=== PATIENT | male | born 1965 | race Caucasian/White ===

== ENCOUNTER → 2016-05-10 | Outpatient (REF) | payer BC ==
[2016-05-10 11:12] LABS: INR 0.9
[2016-05-10 11:28] LABS: ALBUMIN 4.3 GM/DL (3.2-5.2); ALBUMIN/GLOBULIN RATIO 1.39 (1.00-1.93); ALKALINE PHOSPHATASE 77 U/L (45-117); ALT/SGPT 22 U/L (12-78); ANION GAP 11 MEQ/L (8-16); AST/SGOT 21 U/L (15-37); BILIRUBIN,TOTAL 1.4 MG/DL (0.2-1.0); BLOOD UREA NITROGEN 15 MG/DL (7-18); CARBON DIOXIDE LEVEL 28 MEQ/L (21-32); CHLORIDE LEVEL 102 MEQ/L (98-107); CREATININE FOR GFR 0.99 MG/DL (0.70-1.30); GLOMERULAR FILTRATION RATE > 60.0 (>56); GLUCOSE, FASTING 140 MG/DL (70-105); POTASSIUM SERUM 4.1 MEQ/L (3.5-5.1); SODIUM LEVEL 141 MEQ/L (136-145); TOTAL PROTEIN 7.4 GM/DL (6.4-8.2)
== END ==
LOC: M SFHCPLAZ 07:55
PROVIDERS: ATTEND Family Medicine
DX: K76.0 Fatty (change of) liver, not elsewhere classified (principal); E11.9 Type 2 diabetes mellitus without complications

== ENCOUNTER 2016-06-16 01:48 | Emergency (ER) | payer BC ==
[~2016-06-16] VITALS: Ht 172.7 cm; Wt 71.2 kg
[2016-06-16 01:57] VITALS: BP 163/95
[2016-06-16] MEDS ORDERED: MULT1CHW39 PO (02:03)
[2016-06-16] MEDS ORDERED: REST0.05 OP (02:04)
[2016-06-16] MEDS ORDERED: JARD1TAB3 PO (02:04)
[2016-06-16] MEDS ORDERED: PERCOCET 5MG/325MG TAB PO ONE (02:45)
[2016-06-16] MEDS ORDERED: CYCLOBENZAPRINE 5MG TABLET PO ONE (02:45)
[2016-06-16] MEDS ORDERED: KETOROLAC 30 MG/ML VIAL (J1885) IM ONE (02:45)
[2016-06-16] MEDS ORDERED: IBUP600T26 PO (03:23)
[2016-06-16] MEDS ORDERED: CYCL5TA PO (03:24)
[2016-06-16] MEDS ORDERED: PERC5TAB6 PO (03:25)
== END 2016-06-16 03:35 | disposition home or self-care (01) ==
LOC: M ED 03:16
DX: M54.9 Dorsalgia, unspecified (principal); I10 Essential (primary) hypertension; E11.9 Type 2 diabetes mellitus without complications
CPT/HCPCS: 81001; 96372; 99281; J1885

== ENCOUNTER → 2016-11-04 | Outpatient (REF) | payer BC ==
[~2016-11-04] MED LIST: CYCL5TAB PO; IBUP-1022 PO; JARD1TAB3 PO; MULT1CHW39 PO; PERC5TAB12 PO; REST0.05 OP
[2016-11-04 12:12] LABS: CHOLESTEROL LEVEL 125 MG/DL (<200); TRIGLYCERIDES LEVEL 292 MG/DL (<150)
[2016-11-04 18:46] LABS: CALCIUM OXALATE CRYSTALS SMALL
== END ==
LOC: M SFHCPLAZ 07:42
PROVIDERS: ATTEND Family Medicine
DX: E78.2 Mixed hyperlipidemia (principal); E11.9 Type 2 diabetes mellitus without complications; Z12.5 Encounter for screening for malignant neoplasm of prostate
CPT/HCPCS: 36415; 80061; 81001; 82043; 82550; 83036; 86140; G0103

== ENCOUNTER → 2017-05-11 | Outpatient (REF) | payer BC ==
[2017-05-11 14:57] LABS: BASO % 0.6 % (0.0-1.0); EOS # 0.1 10^3/uL (0.0-0.50); EOS % 1.6 % (0.0-3.0); HEMATOCRIT 44.6 % (42.0-52.0); HEMOGLOBIN 15.3 g/dl (14.0-18.0); IMMATURE GRANULOCYTE % 0.2 % (0-0); LYMPH # 2.2 10^3/uL (1.5-4.5); LYMPH % 35.5 % (24.0-44.0); MEAN CORPUSCULAR HEMOGLOBIN 31.6 pg (27.0-33.0); MEAN CORPUSCULAR HGB CONC 34.3 g/dl (32.0-36.5); MEAN CORPUSCULAR VOLUME 92.1 fl (80.0-96.0); MONO # 0.6 10^3/uL (0.0-0.8); MONO % 9.5 % (0.0-5.0); NEUTROPHILS # 3.3 10^3/uL (1.8-7.7); NEUTROPHILS % 52.6 % (36.0-66.0); PLATELET COUNT, AUTOMATED 174 10^3/uL (150-450); RED BLOOD COUNT 4.84 10^6/uL (4.30-6.10); RED CELL DISTRIBUTION WIDTH 12.7 % (11.5-14.5); WHITE BLOOD COUNT 6.2 10^3/uL (4.0-10.0)
[2017-05-11 15:15] LABS: TOTAL 25(OH) VITAMIN D 16.3 NG/ML (30.0-100.0)
[2017-05-11 15:39] LABS: ESTIMATED AVERAGE GLUCOSE 140 MG/DL (60-110); HEMOGLOBIN A1c 6.5 %
[2017-05-11 15:56] LABS: ALBUMIN 4.3 GM/DL (3.2-5.2); ALBUMIN/GLOBULIN RATIO 1.54 (1.00-1.93); ALKALINE PHOSPHATASE 69 U/L (45-117); ALT/SGPT 20 U/L (12-78); ANION GAP 9 MEQ/L (8-16); AST/SGOT 19 U/L (7-37); BILIRUBIN,TOTAL 0.7 MG/DL (0.2-1.0); BLOOD UREA NITROGEN 16 MG/DL (7-18); CALCIUM LEVEL 8.8 MG/DL (8.5-10.1); CARBON DIOXIDE LEVEL 25 MEQ/L (21-32); CHLORIDE LEVEL 105 MEQ/L (98-107); CREATININE FOR GFR 0.94 MG/DL (0.70-1.30); GLOMERULAR FILTRATION RATE > 60.0 (>56); GLUCOSE, FASTING 177 MG/DL (70-100); MAGNESIUM LEVEL 2.1 MG/DL (1.8-2.4); POTASSIUM SERUM 4.1 MEQ/L (3.5-5.1); SODIUM LEVEL 139 MEQ/L (136-145); TOTAL PROTEIN 7.1 GM/DL (6.4-8.2)
[2017-05-13 14:15] LABS: C-PEPTIDE 3.5 ng/mL (1.1-4.4)
== END ==
LOC: M SFHCPLAZ 08:40
DX: E55.9 Vitamin D deficiency, unspecified (principal); N18.2 Chronic kidney disease, stage 2 (mild); E11.9 Type 2 diabetes mellitus without complications; I12.9 Hypertensive chronic kidney disease with stage 1 through stage 4 chronic kidney disease, or unspecified chronic kidney disease
CPT/HCPCS: 83735

== ENCOUNTER → 2017-09-28 | Outpatient (REF) | payer BC ==
[2017-09-28 16:00] LABS: ALBUMIN 4.2 GM/DL (3.2-5.2); ALBUMIN/GLOBULIN RATIO 1.45 (1.00-1.93); ALKALINE PHOSPHATASE 69 U/L (45-117); ALT/SGPT 24 U/L (12-78); ANION GAP 7 MEQ/L (8-16); AST/SGOT 25 U/L (7-37); BILIRUBIN,TOTAL 1.7 MG/DL (0.2-1.0); BLOOD UREA NITROGEN 12 MG/DL (7-18); CALCIUM LEVEL 8.5 MG/DL (8.5-10.1); CARBON DIOXIDE LEVEL 28 MEQ/L (21-32); CHLORIDE LEVEL 104 MEQ/L (98-107); GLOMERULAR FILTRATION RATE > 60.0 (>56); GLUCOSE, FASTING 147 MG/DL (70-100); POTASSIUM SERUM 4.1 MEQ/L (3.5-5.1); SODIUM LEVEL 139 MEQ/L (136-145); TOTAL PROTEIN 7.1 GM/DL (6.4-8.2)
== END ==
LOC: M SFHCPLAZ 08:48
DX: I10 Essential (primary) hypertension (principal); E78.2 Mixed hyperlipidemia; E11.9 Type 2 diabetes mellitus without complications; Z12.5 Encounter for screening for malignant neoplasm of prostate
CPT/HCPCS: 80053

== ENCOUNTER → 2017-10-04 | Outpatient (CLI) | payer BC ==
[~2017-10-04] MED LIST changes: -CYCL5TAB PO; -IBUP-1022 PO; +ISOVUE-370 76% 100ML VIAL (Q9967) As Ordered; -JARD1TAB3 PO; -MULT1CHW39 PO; -PERC5TAB12 PO; -REST0.05 OP
== END ==
LOC: M RAD 13:24
DX: R22.1 Localized swelling, mass and lump, neck (principal); F17.210 Nicotine dependence, cigarettes, uncomplicated
CPT/HCPCS: Q9967

== ENCOUNTER → 2017-11-07 | Outpatient (REF) | payer BC ==
[2017-11-07 13:04] LABS: CHOLESTEROL LEVEL 106 MG/DL (<200); CHOLESTEROL RISK RATIO 2.409 (<5); FREE T4 1.05 NG/DL (0.76-1.46); HDL CHOLESTEROL 44 MG/DL (>40); LDL CHOLESTEROL 22.8 MG/DL (<100); NON-HDL-C 62 MG/DL; PSA SCREENING 0.95 NG/ML (< 4.0); TRIGLYCERIDES LEVEL 196 MG/DL (<150)
[2017-11-07 14:55] LABS: ESTIMATED AVERAGE GLUCOSE 137 MG/DL (60-110); HEMOGLOBIN A1c 6.4 %
[2017-11-08 14:17] LABS: INSULIN LEVEL 8.5 uIU/mL (2.6-24.9)
== END ==
LOC: M SFHCPLAZ 08:13
DX: E78.2 Mixed hyperlipidemia (principal); E11.9 Type 2 diabetes mellitus without complications; Z12.5 Encounter for screening for malignant neoplasm of prostate
CPT/HCPCS: 83525

== ENCOUNTER 2017-12-19 13:59 | Outpatient (RCR) | payer BC | END 2018-01-07 | LOC: M ONCR 13:59 | DX: C77.0 Secondary and unspecified malignant neoplasm of lymph nodes of head, face and neck (principal); C01 Malignant neoplasm of base of tongue | CPT/HCPCS: 77300 ==

== ENCOUNTER 2018-02-05 08:12 | Outpatient (RCR) | payer BC ==
--- NOTE | 2018-01-09 10:23 | RADONC ---
RADIATION ONCOLOGY PROGRESS NOTE DATE: 01/08/2018 CHART NUMBER: [id number] PROGRESS NOTE: Mr. Ruelas is presently at a dose of 600 cGy to his base of tongue and is tolerating treatments quite well at this point with no complaints related to his radiation therapy. He does have weakness and a metallic taste sensation since chemotherapy. REVIEW OF SYSTEMS: The patient's review of systems is positive for a strange taste in his mouth and weakness but is otherwise noncontributory. Denies nausea, vomiting, fevers, chills, night sweats, diplopia, headaches, anxiety or depression, anorexia, weight loss, visual disturbances, chest pain, urinary or bowel difficulties, bone pain, or neurological problems. PHYSICAL EXAMINATION: The patient's skin is in good condition with no evidence of radiation change present. There is no moist or dry desquamation. His oral cavity shows no evidence of mucositis. The remainder of his physical exam remains unchanged. Mr. Ruelas is tolerating treatments quite well and radiation will continue as scheduled.
--- NOTE | 2018-01-17 08:23 | RADONC ---
RADIATION ONCOLOGY PROGRESS NOTE DATE: 01/15/2018 CHART #: [id number] Mr. Ruelas is presently at a dose of 1600 cGy to his base of tongue and is tolerating treatments quite well at this point with no complaints related to his radiation therapy. He is having no significant difficulty swallowing or other problems. REVIEW OF SYSTEMS: The patient's review of systems is noncontributory. Denies nausea, vomiting, fevers, chills, night sweats, diplopia, headaches, anxiety or depression, anorexia, weight loss, visual disturbances, chest pain, urinary or bowel difficulties, bone pain, or neurological problems. PHYSICAL EXAMINATION: The patient's skin is in good condition with no evidence of radiation change present. His oral cavity examination shows minimal mucositis. The remainder of his physical exam remains unchanged. Mr. Ruelas is tolerating treatments quite well and radiation will continue as scheduled.
--- NOTE | 2018-01-23 10:45 | RADONC ---
RADIATION ONCOLOGY PROGRESS NOTE: DATE: 01/22/2018 CHART NUMBER: [id number] PROGRESS NOTE: Mr. Ruelas is presently at a dose of 2600 cGy to his base of tongue and reports that he is having significant oral cavity pain and discomfort. He reports that it is hard to swallow. In addition, nothing tastes right and he has no appetite since he initiated chemotherapy. He reports that this is always worse the third day following chemo. REVIEW OF SYSTEMS: The patient's review of systems is positive for his esophagitis but is otherwise noncontributory. Denies nausea, vomiting, fevers, chills, night sweats, diplopia, headaches, anxiety or depression, anorexia, weight loss, visual disturbances, chest pain, urinary or bowel difficulties, bone pain, or neurological problems. PHYSICAL EXAMINATION: The patient's skin is in good condition with no evidence of radiation change present. There is no moist or dry desquamation. His oral cavity shows some mild mucositis. His weight, however today is down 4 pounds in the past week. The remainder of his physical exam remains unchanged. ASSESSMENT: The patient is clinically doing well with treatment. However, he is now beginning to develop some of the acute difficulties that are expected. I had a lengthy discussion with this patient once again and have highly recommended that he undertake a feeding placement of a PEG tube. He reports that he has spoken with the physicians in [place] and that they have told him that they could get him in within 3 days for placement of a PEG tube. Since he did not go to see our surgeon as advised earlier, I recommend that he take them up on this offer in [place] since they can get him in faster than we can. In addition, I have sent in a prescription for viscous Xylocaine to be taken in order to alleviate some of his discomfort. I have also offered to give him some pain medication in the meantime while we await the feeding tube. At this time, the patient reports that he is urinating frequently without difficulty. His urine is light and clear in color. He does not feel dehydrated. Radiation will continue as scheduled.
--- NOTE | 2018-01-30 10:17 | RADONC ---
RADIATION ONCOLOGY PROGRESS NOTE DATE: 01/29/2018 CHART #: [id number] Mr. Ruelas is presently at a dose of 3600 cGy to his base of tongue and is tolerating treatments with discomfort upon swallowing. He still has not undergone his PEG feeding tube. I have had multiple discussions with him including a lengthy one last week. Apparently, the patient is continuing to refuse placement of the feeding tube and is reporting weakness and difficulty with eating. He is swallowing however. REVIEW OF SYSTEMS: The patient's review of systems is positive for his discomfort but is otherwise noncontributory. Denies nausea, vomiting, fevers, chills, night sweats, diplopia, headaches, anxiety or depression, anorexia, weight loss, visual disturbances, chest pain, urinary or bowel difficulties, bone pain, or neurological problems. PHYSICAL EXAMINATION: The patient's weight now is 142 pounds, down 5 pounds since last week and 9 pounds since the week before. His skin is in good condition with no evidence of radiation change present. His oral cavity shows some mucositis. The remainder of his physical exam remains unchanged. Mr. Ruelas still does not have his feeding tube. I explained to him in detail once again that things will get worse without a feeding tube. I let him know that he will not bounce back right away following completion of therapy and he is going to continue to have this discomfort upon swallowing for at least 2 or 3 weeks after radiation is complete. He is now only 18 days into treatment and has thus far loss a total of 14 pounds. We will continue to follow him closely and encourage him to consider the feeding tube.
[~2018-02-05 08:12] MED LIST changes: +ASPI81TA85 PO; +CRES5TAB PO; +CYCL5TAB PO; +IBUP-1022 PO; +IRBE300T10 PO; -ISOVUE-370 76% 100ML VIAL (Q9967) As Ordered; +JARD1TAB3 PO; +LIDO1SOL7 PO; +METF500T13 PO; +MULT1CHW39 PO; +PERC5TAB12 PO; +REST0.05 OP; +[UNRECOGNIZED DRUG - CODE] PO
[2018-02-05] MEDS ORDERED: METF-881 PO (16:33)
--- NOTE | 2018-02-06 09:14 | RADONC ---
RADIATION ONCOLOGY PROGRESS NOTE DATE: 02/05/2018 CHART NUMBER: [id number] PROGRESS NOTE: Mr. 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 He is currently receiving local regional radiotherapy and receives weekly systemic chemotherapy. His chemotherapy is given in [place]. He was not able to receive his chemotherapy last Monday because of severe nausea. He was given hydration in [place] and antiemetic therapy, however, had a very bad weekend in the fact that he continues to have severe nausea and has not really had any significant nutrition or oral intake for the last 4-5 days. In fact he has lost approximately 14 pounds during that period of time. His energy level is markedly diminished and he is complaining of generalized nausea and vomiting but also fatigue, dizziness and severe nausea. EXAMINATION FINDINGS: The patient appears to be in a great deal of distress secondary to his current nauseated status. His weight is down 14 pounds from last week. He has dry mucous membranes with early mucositis. His skin turgor suggestions dehydration. ASSESSMENT: The patient is clinically dehydrated. He is scheduled to have a PEG tube placed this morning at 9:30 a.m. at this institution. They will assess him as to his hematologic status and hydration and possibly admitted him. As stated his chemotherapy was not given last week because of his deteriorated physical status, dehydration, and hematologic counts. We have taken the liberty of discontinuing his treatment until the patient is more clinically stable.
[2018-02-20] MEDS ORDERED: SILV40CR EXT (13:24)
== END 2018-02-07 ==
LOC: M ONCR 08:12
PROVIDERS: ATTEND Radiology Radiation Oncology
DX: C01 Malignant neoplasm of base of tongue (principal); C77.0 Secondary and unspecified malignant neoplasm of lymph nodes of head, face and neck

== ENCOUNTER 2018-02-05 08:50 | Inpatient (IN) | payer BC ==
[2018-02-05] MEDS: LR 1,000 ML IV (09:59)
[2018-02-05 10:02] LABS: BEDSIDE GLUCOSE 273 MG/DL (70-105)
[2018-02-05] MEDS: HumaLOG INSULIN (NovoLOG) PER UNIT SC ×3 (10:42→23:44)
[2018-02-05 11:31] LABS: BEDSIDE GLUCOSE 230 MG/DL (70-105)
[2018-02-05] MEDS: BUPIVACAINE HCL 0.25% 30 ML VIAL As Ordered (11:55)
[2018-02-05] MEDS: LIDOCAINE 1% SDV INJ 30 ML VIAL As Ordered (11:55)
[2018-02-05] MEDS ORDERED: fentaNYL 250 MCG/5 ML INJECTION (J3010) As Ordered (12:32)
[2018-02-05] MEDS ORDERED: PROPOFOL 200 MG/20 ML VIAL As Ordered (12:32)
[2018-02-05] MEDS ORDERED: LIDOCAINE 2% INJ 100 MG/5 ML SDV (FOR ANES.) As Ordered (12:32)
[2018-02-05] MEDS ORDERED: ONDANSETRON 4MG/2ML VIAL (J2405) As Ordered (12:33)
[2018-02-05 15:35] LABS: BEDSIDE GLUCOSE 155 MG/DL (70-105)
[2018-02-05] MEDS ORDERED: GLUCOSE 4 GM CHEW TABLET PO (15:45)
[2018-02-05] MEDS ORDERED: GLUCAGON FOR INJ 1 MG VIAL (J1610) SC (15:45)
[2018-02-05] MEDS ORDERED: DEXTROSE 50% 50 ML SYRINGE IV (15:45)
[2018-02-05 16:24] LABS: HEMATOCRIT 35.2 % (42.0-52.0); HEMOGLOBIN 12.8 g/dl (13.5-17.5); MEAN CORPUSCULAR HEMOGLOBIN 32.6 pg (27.0-33.0); MEAN CORPUSCULAR HGB CONC 36.4 g/dl (32.0-36.5); MEAN CORPUSCULAR VOLUME 89.6 fl (80.0-96.0); PLATELET COUNT, AUTOMATED 106 10^3/uL (150-450); RED BLOOD COUNT 3.93 10^6/uL (4.30-6.10); RED CELL DISTRIBUTION WIDTH 15.4 % (11.5-14.5); WHITE BLOOD COUNT 3.5 10^3/uL (4.0-10.0)
[2018-02-05 16:51] LABS: ADD MANUAL DIFFER YES; DIFF SLIDE NUMBER 293; POSITIVE DIFF POS FLAG
[2018-02-05 16:57] LABS: ALBUMIN 3.4 GM/DL (3.2-5.2); ALKALINE PHOSPHATASE 88 U/L (45-117); ALT/SGPT 11 U/L (12-78); ANION GAP 11 MEQ/L (8-16); AST/SGOT 9 U/L (7-37); BILIRUBIN,TOTAL 1.2 MG/DL (0.2-1.0); BLOOD UREA NITROGEN 44 MG/DL (7-18); CALCIUM LEVEL 8.8 MG/DL (8.5-10.1); CARBON DIOXIDE LEVEL 25 MEQ/L (21-32); CHLORIDE LEVEL 108 MEQ/L (98-107); CREATININE FOR GFR 1.09 MG/DL (0.70-1.30); GLOMERULAR FILTRATION RATE > 60.0 (>56); GLUCOSE, FASTING 159 MG/DL (70-100); MAGNESIUM LEVEL 2.5 MG/DL (1.8-2.4); POTASSIUM SERUM 4.2 MEQ/L (3.5-5.1); SODIUM LEVEL 144 MEQ/L (136-145); TOTAL PROTEIN 6.8 GM/DL (6.4-8.2)
[2018-02-05 17:10] LABS: LACTIC ACID SEPSIS PROTOCOL 2.1 MMOL/L (0.4-2.0)
[2018-02-05 17:24] LABS: BEDSIDE GLUCOSE 159 MG/DL (70-105)
[2018-02-05] MEDS: NS 1,000 ML IV ×2 (18:01→23:41)
[2018-02-05 18:25] LABS: KETONE, URINE AUTO RFX 2+ mg/dL (NEGATIVE); LEUKOCYTE ESTERASE UR AUTO RFX NEGATIVE (NEGATIVE); MUCUS, URINE RFX SMALL (NEGATIVE); NITRITE, URINE AUTO RFX NEGATIVE (NEGATIVE); RBC, URINE AUTO RFX 0 /HPF (0-3); SPECIFIC GRAVITY UR AUTO RFX 1.036 (1.002-1.035); SQUAM EPITHELIAL CELL UR AURFX 0 /HPF (0-6); WBC, URINE AUTO RFX 1 /HPF (0-3)
[2018-02-05 18:46] LABS: ATYPICAL LYMPH 3 % (0-5); BANDS 4 % (< 11); LYMPHOCYTES 7 % (16-52); MONOCYTES 22 % (0-8); NEUTROPHILS 64 % (35-75)
[2018-02-05 18:47] LABS: PLATELET ESTIMATE DECREASED (NORMAL)
[2018-02-05] MEDS: PANTOPRAZOLE 40MG INJ (PROTONIX) (C9113) IV (20:06)
[2018-02-05 23:42] LABS: BEDSIDE GLUCOSE 153 MG/DL (70-105)
[2018-02-06] MEDS: HumaLOG INSULIN (NovoLOG) PER UNIT SC ×3 (05:42→17:26)
[2018-02-06 05:52] LABS: BEDSIDE GLUCOSE 115 MG/DL (70-105)
[2018-02-06 06:38] LABS: HEMATOCRIT 30.9 % (42.0-52.0); MEAN CORPUSCULAR HEMOGLOBIN 32.2 pg (27.0-33.0); MEAN CORPUSCULAR HGB CONC 34.6 g/dl (32.0-36.5); MEAN CORPUSCULAR VOLUME 93.1 fl (80.0-96.0); RED BLOOD COUNT 3.32 10^6/uL (4.30-6.10); RED CELL DISTRIBUTION WIDTH 15.2 % (11.5-14.5); WHITE BLOOD COUNT 2.3 10^3/uL (4.0-10.0)
[2018-02-06 06:42] LABS: HEMOGLOBIN 10.7 g/dl (13.5-17.5); POSITIVE DIFF POS FLAG; POSITIVE MORPH POS FLAG
[2018-02-06 06:43] LABS: ADD MANUAL DIFFER YES; DIFF SLIDE NUMBER 87; IMMATURE PLATELET FRACTION % 1.1 % (0.0-10.9); PLATELET COUNT, AUTOMATED 60 10^3/uL (150-450)
[2018-02-06 07:09] LABS: ALBUMIN 2.7 GM/DL (3.2-5.2); ALBUMIN/GLOBULIN RATIO 0.87 (1.00-1.93); ALKALINE PHOSPHATASE 68 U/L (45-117); ALT/SGPT 8 U/L (12-78); ANION GAP 8 MEQ/L (8-16); AST/SGOT 8 U/L (7-37); BILIRUBIN,TOTAL 1.1 MG/DL (0.2-1.0); BLOOD UREA NITROGEN 33 MG/DL (7-18); CALCIUM LEVEL 8.3 MG/DL (8.5-10.1); CARBON DIOXIDE LEVEL 25 MEQ/L (21-32); CHLORIDE LEVEL 111 MEQ/L (98-107); CREATININE FOR GFR 0.86 MG/DL (0.70-1.30); GLOMERULAR FILTRATION RATE > 60.0 (>56); GLUCOSE, FASTING 151 MG/DL (70-100); MAGNESIUM LEVEL 2.3 MG/DL (1.8-2.4); POTASSIUM SERUM 4.8 MEQ/L (3.5-5.1); SODIUM LEVEL 144 MEQ/L (136-145); TOTAL PROTEIN 5.8 GM/DL (6.4-8.2)
[2018-02-06 07:11] LABS: BANDS 14 % (< 11); LYMPHOCYTES 12 % (16-52); MONOCYTES 11 % (0-8); NEUTROPHILS 63 % (35-75)
[2018-02-06 07:12] LABS: PLATELET ESTIMATE DECREASED (NORMAL); TEAR DROP CELLS 1+
[2018-02-06] MEDS: ROSUVASTATIN 10 MG TAB (CRESTOR) PO (09:47)
[2018-02-06] MEDS: ASPIRIN 81 MG ENTERIC TAB PO (09:47)
[2018-02-06] MEDS: PROPRANOLOL 60 MG LA CAP PO (09:47)
[2018-02-06] MEDS: NS 1,000 ML IV ×2 (10:08→16:56)
[2018-02-06 11:43] LABS: BEDSIDE GLUCOSE 233 MG/DL (70-105)
[2018-02-06 17:13] LABS: BEDSIDE GLUCOSE 167 MG/DL (70-105)
[2018-02-06] MEDS: METOCLOPRAMIDE INJ 10MG/2ML VIAL (J2765) IV ×2 (17:26→21:51)
[2018-02-06] MEDS: PANTOPRAZOLE 40MG INJ (PROTONIX) (C9113) IV (21:51)
[2018-02-06 23:26] LABS: BEDSIDE GLUCOSE 161 MG/DL (70-105)
[2018-02-07] MEDS: HumaLOG INSULIN (NovoLOG) PER UNIT SC ×5 (00:05→23:39)
[2018-02-07] MEDS: NS 1,000 ML IV ×3 (01:40→18:15)
[2018-02-07 05:56] LABS: BEDSIDE GLUCOSE 133 MG/DL (70-105)
[2018-02-07] MEDS: METOCLOPRAMIDE INJ 10MG/2ML VIAL (J2765) IV ×4 (05:56→21:52)
[2018-02-07 06:57] LABS: HEMATOCRIT 23.7 % (42.0-52.0); MEAN CORPUSCULAR HEMOGLOBIN 33.5 pg (27.0-33.0); MEAN CORPUSCULAR HGB CONC 36.3 g/dl (32.0-36.5); MEAN CORPUSCULAR VOLUME 92.2 fl (80.0-96.0); RED BLOOD COUNT 2.57 10^6/uL (4.30-6.10); RED CELL DISTRIBUTION WIDTH 14.6 % (11.5-14.5)
[2018-02-07 07:25] LABS: ALBUMIN 2.2 GM/DL (3.2-5.2); ALBUMIN/GLOBULIN RATIO 0.88 (1.00-1.93); ALKALINE PHOSPHATASE 59 U/L (45-117); ALT/SGPT 9 U/L (12-78); ANION GAP 8 MEQ/L (8-16); AST/SGOT 11 U/L (7-37); BILIRUBIN,TOTAL 0.9 MG/DL (0.2-1.0); BLOOD UREA NITROGEN 14 MG/DL (7-18); CALCIUM LEVEL 7.7 MG/DL (8.5-10.1); CARBON DIOXIDE LEVEL 26 MEQ/L (21-32); CHLORIDE LEVEL 109 MEQ/L (98-107); CREATININE FOR GFR 0.55 MG/DL (0.70-1.30); GLOMERULAR FILTRATION RATE > 60.0 (>56); GLUCOSE, FASTING 126 MG/DL (70-100); POTASSIUM SERUM 3.9 MEQ/L (3.5-5.1); SODIUM LEVEL 143 MEQ/L (136-145); TOTAL PROTEIN 4.7 GM/DL (6.4-8.2)
[2018-02-07 07:50] LABS: HEMOGLOBIN 8.6 g/dl (13.5-17.5); PLATELET COUNT, AUTOMATED 46 10^3/uL (150-450); POS COUNT POS FLAG; POSITIVE DIFF POS FLAG; POSITIVE MORPH POS FLAG; WHITE BLOOD COUNT 1.7 10^3/uL (4.0-10.0)
[2018-02-07 07:51] LABS: ADD MANUAL DIFFER YES; DIFF SLIDE NUMBER 53
[2018-02-07 07:59] LABS: IMMATURE PLATELET FRACTION % 1.6 % (0.0-10.9)
[2018-02-07 08:19] LABS: ANISOCYTOSIS 1+; ATYPICAL LYMPH 1 % (0-5); BANDS 14 % (< 11); EOSINOPHILS 5 % (0-5); LYMPHOCYTES 17 % (16-52); MICROCYTOSIS 1+; MONOCYTES 3 % (0-8); MYELOCYTES 1 % (0-0); NEUTROPHILS 59 % (35-75); PLATELET ESTIMATE MARKED DECREASE (NORMAL)
[2018-02-07 08:20] LABS: POIKILOCYTOSIS 1+
[2018-02-07] MEDS: ASPIRIN 81 MG ENTERIC TAB PO (09:09)
[2018-02-07] MEDS: PROPRANOLOL 60 MG LA CAP PO (09:09)
[2018-02-07] MEDS: ROSUVASTATIN 10 MG TAB (CRESTOR) PO (09:10)
[2018-02-07 11:52] LABS: BEDSIDE GLUCOSE 164 MG/DL (70-105)
[2018-02-07 16:53] LABS: BEDSIDE GLUCOSE 185 MG/DL (70-105)
[2018-02-07] MEDS: PANTOPRAZOLE 40MG INJ (PROTONIX) (C9113) IV (21:51)
[2018-02-08] MEDS: NS 1,000 ML IV (03:02)
[2018-02-08 04:58] LABS: BEDSIDE GLUCOSE 131 MG/DL (70-105)
[2018-02-08] MEDS: HumaLOG INSULIN (NovoLOG) PER UNIT SC ×2 (05:48→11:57)
[2018-02-08] MEDS: METOCLOPRAMIDE INJ 10MG/2ML VIAL (J2765) IV ×2 (05:48→11:56)
[2018-02-08 06:14] LABS: HEMATOCRIT 21.9 % (42.0-52.0); MEAN CORPUSCULAR HEMOGLOBIN 32.8 pg (27.0-33.0); MEAN CORPUSCULAR HGB CONC 36.5 g/dl (32.0-36.5); MEAN CORPUSCULAR VOLUME 89.8 fl (80.0-96.0); RED BLOOD COUNT 2.44 10^6/uL (4.30-6.10); RED CELL DISTRIBUTION WIDTH 14.6 % (11.5-14.5)
[2018-02-08 06:50] LABS: ALBUMIN 2.1 GM/DL (3.2-5.2); ALBUMIN/GLOBULIN RATIO 0.84 (1.00-1.93); ALKALINE PHOSPHATASE 53 U/L (45-117); ALT/SGPT 7 U/L (12-78); ANION GAP 9 MEQ/L (8-16); AST/SGOT 10 U/L (7-37); BILIRUBIN,TOTAL 0.9 MG/DL (0.2-1.0); BLOOD UREA NITROGEN 6 MG/DL (7-18); CALCIUM LEVEL 7.6 MG/DL (8.5-10.1); CARBON DIOXIDE LEVEL 26 MEQ/L (21-32); CHLORIDE LEVEL 104 MEQ/L (98-107); CREATININE FOR GFR 0.45 MG/DL (0.70-1.30); GLOMERULAR FILTRATION RATE > 60.0 (>56); GLUCOSE, FASTING 129 MG/DL (70-100); MAGNESIUM LEVEL 1.8 MG/DL (1.8-2.4); POTASSIUM SERUM 3.4 MEQ/L (3.5-5.1); SODIUM LEVEL 139 MEQ/L (136-145); TOTAL PROTEIN 4.6 GM/DL (6.4-8.2)
[2018-02-08 06:56] LABS: ADD MANUAL DIFFER YES; DIFF SLIDE NUMBER 44; PLATELET COUNT, AUTOMATED 41 10^3/uL (150-450); POS COUNT POS FLAG; POSITIVE DIFF POS FLAG; POSITIVE MORPH POS FLAG; WHITE BLOOD COUNT 1.4 10^3/uL (4.0-10.0)
[2018-02-08 07:08] LABS: BANDS 5 % (< 11); EOSINOPHILS 3 % (0-5); LYMPHOCYTES 13 % (16-52); MONOCYTES 16 % (0-8); NEUTROPHILS 63 % (35-75)
[2018-02-08 07:09] LABS: PLATELET ESTIMATE MARKED DECREASE (NORMAL)
[2018-02-08 07:11] LABS: ANISOCYTOSIS 1+
[2018-02-08 08:50] LABS: BEDSIDE GLUCOSE 135 MG/DL (70-105)
[2018-02-08] MEDS: PROPRANOLOL 60 MG LA CAP PO (10:32)
[2018-02-08] MEDS: ASPIRIN 81 MG CHEW TABLET PEG (10:32)
[2018-02-08] MEDS: ROSUVASTATIN 10 MG TAB (CRESTOR) PO (10:33)
[2018-02-08 12:11] LABS: BEDSIDE GLUCOSE 242 MG/DL (70-105)
== END 2018-02-08 13:38 | disposition home or self-care (01) | DRG 110 ==
LOC: M SDC 08:50 → M OR 16:07 → M MSPAV 16:30
PROVIDERS: Internal Medicine
PROC: 0DH63UZ Insertion of Feeding Device into Stomach, Percutaneous Approach (ICD-10-PCS; principal; 2018-02-05 11:45)
DX: C02.9 Malignant neoplasm of tongue, unspecified (principal); E46 Unspecified protein-calorie malnutrition; R13.10 Dysphagia, unspecified; D64.81 Anemia due to antineoplastic chemotherapy; R62.7 Adult failure to thrive; E86.0 Dehydration; C14.0 Malignant neoplasm of pharynx, unspecified; I10 Essential (primary) hypertension; E78.5 Hyperlipidemia, unspecified; E11.9 Type 2 diabetes mellitus without complications; Z79.82 Long term (current) use of aspirin; Z79.84 Long term (current) use of oral hypoglycemic drugs; Z92.21 Personal history of antineoplastic chemotherapy; Z92.3 Personal history of irradiation; Z90.49 Acquired absence of other specified parts of digestive tract; Z87.891 Personal history of nicotine dependence; Z68.21 Body mass index [BMI] 21.0-21.9, adult; Z79.899 Other long term (current) drug therapy

== ENCOUNTER 2018-02-12 08:06 | Outpatient (RCR) | payer BC | END 2018-03-09 | LOC: M ONCR 08:06 | DX: C01 Malignant neoplasm of base of tongue (principal); C77.0 Secondary and unspecified malignant neoplasm of lymph nodes of head, face and neck | CPT/HCPCS: 77336 ==

== ENCOUNTER → 2018-02-21 | Outpatient (REF) | payer BC ==
[2018-02-21 13:33] LABS: HEMATOCRIT 24.6 % (42.0-52.0); HEMOGLOBIN 8.6 g/dl (13.5-17.5); MEAN CORPUSCULAR HEMOGLOBIN 32.6 pg (27.0-33.0); MEAN CORPUSCULAR VOLUME 93.2 fl (80.0-96.0); PLATELET COUNT, AUTOMATED 242 10^3/uL (150-450); RED BLOOD COUNT 2.64 10^6/uL (4.30-6.10); RED CELL DISTRIBUTION WIDTH 17.1 % (11.5-14.5)
[2018-02-21 13:40] LABS: ADD MANUAL DIFFER YES; DIFF SLIDE NUMBER 208; POSITIVE DIFF POS FLAG; POSITIVE MORPH POS FLAG
[2018-02-21 13:46] LABS: ALBUMIN 2.5 GM/DL (3.2-5.2); ALBUMIN/GLOBULIN RATIO 0.89 (1.00-1.93); ALKALINE PHOSPHATASE 59 U/L (45-117); ALT/SGPT 11 U/L (12-78); ANION GAP 6 MEQ/L (8-16); AST/SGOT 11 U/L (7-37); BILIRUBIN,TOTAL 1.2 MG/DL (0.2-1.0); BLOOD UREA NITROGEN 14 MG/DL (7-18); CALCIUM LEVEL 8.5 MG/DL (8.5-10.1); CARBON DIOXIDE LEVEL 32 MEQ/L (21-32); CHLORIDE LEVEL 100 MEQ/L (98-107); CREATININE FOR GFR 0.81 MG/DL (0.70-1.30); GLOMERULAR FILTRATION RATE > 60.0 (>56); GLUCOSE, FASTING 176 MG/DL (70-100); POTASSIUM SERUM 4.5 MEQ/L (3.5-5.1); SODIUM LEVEL 138 MEQ/L (136-145); TOTAL PROTEIN 5.3 GM/DL (6.4-8.2)
[2018-02-21 13:48] LABS: ESTIMATED AVERAGE GLUCOSE 123 MG/DL (60-110); HEMOGLOBIN A1c 5.9 %
[2018-02-21 14:19] LABS: ATYPICAL LYMPH 1 % (0-5); BANDS 18 % (< 11); EOSINOPHILS 1 % (0-5); LYMPHOCYTES 9 % (16-52); METAMYELOCYTES 2 % (0-0); MONOCYTES 15 % (0-8); NEUTROPHILS 54 % (35-75)
[2018-02-21 14:20] LABS: PLATELET ESTIMATE NORMAL (NORMAL)
[2018-02-21 14:21] LABS: TOXIC GRANULATION 1+; TOXIC VACUOLATION 1+
[2018-02-21 14:22] LABS: POLYCHROMASIA 1+
== END ==
LOC: M SFHCPLAZ 10:54
DX: I10 Essential (primary) hypertension (principal); E11.9 Type 2 diabetes mellitus without complications
CPT/HCPCS: 80053

== ENCOUNTER → 2018-03-07 | Outpatient (CLI) | payer BC ==
[2018-03-07 14:16] LABS: HEMATOCRIT 22.1 % (42.0-52.0); HEMOGLOBIN 7.6 g/dl (13.5-17.5); MEAN CORPUSCULAR HEMOGLOBIN 33.2 pg (27.0-33.0); MEAN CORPUSCULAR HGB CONC 34.4 g/dl (32.0-36.5); MEAN CORPUSCULAR VOLUME 96.5 fl (80.0-96.0); PLATELET COUNT, AUTOMATED 207 10^3/uL (150-450); RED BLOOD COUNT 2.29 10^6/uL (4.30-6.10); WHITE BLOOD COUNT 4.3 10^3/uL (4.0-10.0)
[2018-03-07 14:23] LABS: ADD MANUAL DIFFER YES; DIFF SLIDE NUMBER 257; POSITIVE DIFF POS FLAG; POSITIVE MORPH POS FLAG
[2018-03-07 14:42] LABS: FERRITIN 590 NG/ML (26-388); IRON (FE) 53 UG/DL (65-175); PERCENT SATURATION 27.9 % (19.7-50.0); TOTAL IRON BINDING CAPACITY 190 UG/DL (250-450)
[2018-03-07 14:48] LABS: BANDS 5 % (< 11); BASOPHILS 2 % (0-4); EOSINOPHILS 1 % (0-5); LYMPHOCYTES 6 % (16-52); METAMYELOCYTES 3 % (0-0); MONOCYTES 11 % (0-8); NEUTROPHILS 72 % (35-75)
[2018-03-07 14:49] LABS: ANISOCYTOSIS 2+; POIKILOCYTOSIS 1+; POLYCHROMASIA 1+
[2018-03-07 14:51] LABS: MICROCYTOSIS 1+; PLATELET ESTIMATE NORMAL (NORMAL)
[2018-03-08 08:06] LABS: TRANSFERRIN 163 mg/dL (200-370)
== END ==
LOC: M SMT 13:21
DX: C01 Malignant neoplasm of base of tongue (principal)
CPT/HCPCS: 82728

== ENCOUNTER → 2018-03-19 | Outpatient (CLI) | payer BC ==
[2018-03-19 13:26] LABS: BASO % 0.5 % (0.0-1.0); EOS # 0.1 10^3/uL (0.0-0.50); EOS % 1.6 % (0.0-3.0); HEMATOCRIT 36.4 % (42.0-52.0); HEMOGLOBIN 12.2 g/dl (13.5-17.5); LYMPH # 0.3 10^3/uL (1.5-4.5); LYMPH % 8.5 % (24.0-44.0); MEAN CORPUSCULAR HEMOGLOBIN 32.1 pg (27.0-33.0); MEAN CORPUSCULAR HGB CONC 33.5 g/dl (32.0-36.5); MEAN CORPUSCULAR VOLUME 95.8 fl (80.0-96.0); MONO # 0.4 10^3/uL (0.0-0.8); MONO % 11.1 % (0.0-5.0); NEUTROPHILS % 77.3 % (36.0-66.0); PLATELET COUNT, AUTOMATED 192 10^3/uL (150-450); RED CELL DISTRIBUTION WIDTH 15.2 % (11.5-14.5); WHITE BLOOD COUNT 3.9 10^3/uL (4.0-10.0)
== END ==
LOC: M SMT 10:29
DX: C01 Malignant neoplasm of base of tongue (principal)
CPT/HCPCS: 85025

== ENCOUNTER → 2018-03-20 | Outpatient (CLI) | payer BC | LOC: M ONCR 08:58 | DX: C01 Malignant neoplasm of base of tongue (principal); C77.0 Secondary and unspecified malignant neoplasm of lymph nodes of head, face and neck | CPT/HCPCS: G0463 ==

== ENCOUNTER → 2018-04-04 | Outpatient (CLI) | payer BC ==
[~2018-04-04] MED LIST changes: +METF-881 PO; +SILV40CR EXT
[2018-04-04 13:21] LABS: BLOOD UREA NITROGEN 18 MG/DL (7-18); CALCIUM LEVEL 8.9 MG/DL (8.5-10.1); CARBON DIOXIDE LEVEL 33 MEQ/L (21-32); CHLORIDE LEVEL 100 MEQ/L (98-107); CREATININE FOR GFR 0.78 MG/DL (0.70-1.30); GLOMERULAR FILTRATION RATE > 60.0 (>56); GLUCOSE, FASTING 297 MG/DL (70-100); POTASSIUM SERUM 5.3 MEQ/L (3.5-5.1); SODIUM LEVEL 138 MEQ/L (136-145)
== END ==
LOC: M SMT 11:54
PROVIDERS: ATTEND Physician Assistant
DX: C01 Malignant neoplasm of base of tongue (principal)

== ENCOUNTER → 2018-04-25 | Outpatient (CLI) | payer BC ==
--- NOTE | 2018-04-27 07:51 | RADONC ---
RADIOLOGY/ONCOLOGY FOLLOWUP NOTE: DATE OF SERVICE: 04/26/2018 CHART NUMBER: [id number] DIAGNOSIS: Base of tongue cancer. STAGE : I, cT2 N1 M0 P16 positive. ECOG PERFORMANCE STATUS: 0 Mr. Ruelas is a very pleasant 52-year-old white male with the diagnosis of a stage I, cT2 N1 M0 P16+ squamous cell carcinoma of left base of tongue was left neck adenopathy who is presenting to us today for routine followup visit 1 month post completion of external beam radiation therapy. The patient presents today reporting that he is doing much better at this time. He is still using his feeding tube but is able to swallow liquids. He reports that he still has some soreness of the throat but it is rapidly improving. He has also been gaining weight and in deed, has gained 5 pounds since completion of treatment. REVIEW OF SYSTEMS: The patient's review of systems is positive for the above, but is otherwise noncontributory. He denies nausea, vomiting, fevers, chills, night sweats, diplopia, headaches, anxiety or depression, anorexia, weight loss, visual disturbances, chest pain, urinary or bowel difficulties, bone pain, or neurological problems. PHYSICAL EXAMINATION: The patient is a well-developed, well-nourished white male in no acute distress. HEENT: Exam is normocephalic, atraumatic. Extraocular movements are intact. Examination of the patient's oral cavity shows no evidence of nodularity or sites of disease. Laryngoscopic evaluation was not undertaken. There is no palpable cervical, supraclavicular, infraclavicular or axillary lymphadenopathy present. His lungs are clear to auscultation and percussion. The patient's weight today is a 135 pounds up from a low of 130 at completion of treatment. ASSESSMENT: The patient is clinically doing quite well. He is scheduled see his head and neck surgeon Dr. German on Monday for a full fiberoptic laryngoscopic evaluation. He will continue to follow Dr. German on a routine basis every month to 2 months. In addition, he is seeing his medical oncologist, Dr. Tapia every 3 months. In light of his very close followup with his medical oncologist and head and neck surgeon, I have discharge this patient from our followup except on a p.r.n. basis. I did have a lengthy discussion with the patient's with regards to postradiation care including stretching exercises for his jaw to avoid difficulties opening his mouth as well as nutritional issues and oral dental care issues. The patient has been instructed to feel free to contact me anytime if I could be of any assistance in the future. cc: MD Obi Arroyo MD Abirami Sivapiragasam, MD Ryan Tyler, MD
== END ==
LOC: M ONCR 15:09
PROVIDERS: ATTEND Radiology Radiation Oncology
DX: C01 Malignant neoplasm of base of tongue (principal); C77.0 Secondary and unspecified malignant neoplasm of lymph nodes of head, face and neck

== ENCOUNTER → 2018-06-28 | Outpatient (REF) | payer BC ==
[2018-06-28 12:16] LABS: APPEARANCE, URINE CLEAR (CLEAR); BACTERIA, URINE AUTO NEGATIVE (NEGATIVE); BILIRUBIN, URINE AUTO NEGATIVE (NEGATIVE); BLOOD, URINE BLOOD NEGATIVE (NEGATIVE); COLOR, URINE YELLOW (YELLOW); GLUCOSE, URINE (UA) AUTO NEGATIVE (NEGATIVE); KETONE, URINE AUTO NEGATIVE (NEGATIVE); LEUKOCYTE ESTERASE, URINE AUTO NEGATIVE (NEGATIVE); MUCUS, URINE SMALL (NEGATIVE); NITRITE, URINE AUTO NEGATIVE (NEGATIVE); PROTEIN, URINE AUTO NEGATIVE (NEGATIVE); RBC, URINE AUTO 0 /HPF (0-3); SPECIFIC GRAVITY URINE AUTO 1.014 (1.002-1.035); SQUAMOUS EPITHELIAL CELL UR AU 0 /HPF (0-6); UROBILINOGEN, URINE AUTO 0.2 mg/dL (0.0-2.0); WBC, URINE AUTO 1 /HPF (0-3)
[2018-06-28 12:19] LABS: BASO % 0.3 % (0.0-1.0); EOS # 0.1 10^3/uL (0.0-0.50); EOS % 4.3 % (0.0-3.0); HEMATOCRIT 35.8 % (42.0-52.0); HEMOGLOBIN 12.3 g/dl (13.5-17.5); LYMPH # 0.5 10^3/uL (1.5-4.5); LYMPH % 15.8 % (24.0-44.0); MEAN CORPUSCULAR HGB CONC 34.4 g/dl (32.0-36.5); MONO # 0.4 10^3/uL (0.0-0.8); MONO % 11.8 % (0.0-5.0); NEUTROPHILS # 2.2 10^3/uL (1.8-7.7); NEUTROPHILS % 67.8 % (36.0-66.0); PLATELET COUNT, AUTOMATED 115 10^3/uL (150-450); RED BLOOD COUNT 3.73 10^6/uL (4.30-6.10); WHITE BLOOD COUNT 3.2 10^3/uL (4.0-10.0)
[2018-06-28 13:15] LABS: ALT/SGPT 13 U/L (12-78); BILIRUBIN,TOTAL 1.2 MG/DL (0.2-1.0); BLOOD UREA NITROGEN 16 MG/DL (7-18); CALCIUM LEVEL 9.3 MG/DL (8.5-10.1); CARBON DIOXIDE LEVEL 31 MEQ/L (21-32); CHLORIDE LEVEL 105 MEQ/L (98-107); CHOLESTEROL LEVEL 127 MG/DL (<200); CREATININE FOR GFR 0.78 MG/DL (0.70-1.30); FREE T4 1.06 NG/DL (0.76-1.46); GLOMERULAR FILTRATION RATE > 60.0 (>56); GLUCOSE, FASTING 147 MG/DL (70-100); HDL CHOLESTEROL 50 MG/DL (>40); LDL CHOLESTEROL 48 MG/DL (<100); NON-HDL-C 77 MG/DL; POTASSIUM SERUM 4.5 MEQ/L (3.5-5.1); SODIUM LEVEL 142 MEQ/L (136-145); TOTAL PROTEIN 6.7 GM/DL (6.4-8.2); TRIGLYCERIDES LEVEL 146 MG/DL (<150)
[2018-06-28 13:54] LABS: MALB URINE SIEMENS 10.3 MG/L; MAU/CREAT RATIO 5.8 MCG/MG (0.0-30.0)
[2018-06-28 14:00] LABS: HEMOGLOBIN A1c 5.2 %
== END ==
LOC: M SFHCPLAZ 08:23
PROVIDERS: ATTEND Family Medicine
DX: E11.9 Type 2 diabetes mellitus without complications (principal)

== ENCOUNTER → 2018-12-17 | Outpatient (REF) | payer BC ==
[~2018-12-17] MED LIST changes: -LIDO1SOL7 PO; +LIDO1SOL8 PO; -MULT1CHW39 PO; +MULT200T7 PO; +[UNRECOGNIZED DRUG - CODE] PO; -[UNRECOGNIZED DRUG - CODE] PO
[2018-12-17 13:58] LABS: BASO % 0.6 % (0.0-1.0); EOS # 0.1 10^3/uL (0.0-0.5); EOS % 2.5 % (0.0-3.0); HEMATOCRIT 38.4 % (42.0-52.0); HEMOGLOBIN 13.1 g/dl (13.5-17.5); LYMPH # 0.6 10^3/uL (1.5-5.0); LYMPH % 17.9 % (24.0-44.0); MEAN CORPUSCULAR HGB CONC 34.1 g/dl (32.0-36.5); MEAN CORPUSCULAR VOLUME 93.9 fl (80.0-96.0); MONO # 0.5 10^3/uL (0.0-0.8); NEUTROPHILS # 2.3 10^3/uL (1.5-8.5); NEUTROPHILS % 64.7 % (36.0-66.0); PLATELET COUNT, AUTOMATED 118 10^3/uL (150-450); RED BLOOD COUNT 4.09 10^6/uL (4.30-6.10); WHITE BLOOD COUNT 3.6 10^3/uL (4.0-10.0)
[2018-12-17 14:00] LABS: ALBUMIN 4.2 GM/DL (3.2-5.2); ALT/SGPT 17 U/L (12-78); BILIRUBIN,TOTAL 1.1 MG/DL (0.2-1.0); BLOOD UREA NITROGEN 17 MG/DL (7-18); CALCIUM LEVEL 9.1 MG/DL (8.5-10.1); CARBON DIOXIDE LEVEL 28 MEQ/L (21-32); CHLORIDE LEVEL 105 MEQ/L (98-107); CREATININE FOR GFR 1.02 MG/DL (0.70-1.30); GLOMERULAR FILTRATION RATE > 60.0 (>56); GLUCOSE, FASTING 164 MG/DL (70-100); POTASSIUM SERUM 4.7 MEQ/L (3.5-5.1); SODIUM LEVEL 141 MEQ/L (136-145); TOTAL PROTEIN 6.6 GM/DL (6.4-8.2)
[2018-12-17 15:01] LABS: VITAMIN B12 LEVEL 639 PG/ML (247-911)
[2018-12-17 15:33] LABS: HEMOGLOBIN A1c 5.9 %
== END ==
LOC: M SFHCPLAZ 08:32
PROVIDERS: ATTEND Family Medicine
DX: D61.818 Other pancytopenia (principal); Z12.5 Encounter for screening for malignant neoplasm of prostate; E11.9 Type 2 diabetes mellitus without complications
CPT/HCPCS: 36415; 80053; 82607; 83036; 85025; 85046; G0103

== ENCOUNTER → 2019-05-13 | Outpatient (REF) | payer BC ==
[2019-05-13 14:08] LABS: BASO % 0.7 % (0.0-1.0); EOS # 0.1 10^3/uL (0.0-0.5); EOS % 2.4 % (0.0-3.0); HEMATOCRIT 43.1 % (42.0-52.0); HEMOGLOBIN 14.5 g/dl (13.5-17.5); LYMPH # 0.7 10^3/uL (1.5-5.0); LYMPH % 17.5 % (24.0-44.0); MEAN CORPUSCULAR HEMOGLOBIN 30.8 pg (27.0-33.0); MEAN CORPUSCULAR HGB CONC 33.6 g/dl (32.0-36.5); MEAN CORPUSCULAR VOLUME 91.5 fl (80.0-96.0); MONO # 0.4 10^3/uL (0.0-0.8); MONO % 8.4 % (0.0-5.0); NEUTROPHILS # 2.9 10^3/uL (1.5-8.5); NEUTROPHILS % 70.5 % (36.0-66.0); PLATELET COUNT, AUTOMATED 135 10^3/uL (150-450); RED BLOOD COUNT 4.71 10^6/uL (4.30-6.10); WHITE BLOOD COUNT 4.2 10^3/uL (4.0-10.0)
[2019-05-13 14:24] LABS: ALBUMIN 4.2 GM/DL (3.2-5.2); ALT/SGPT 14 U/L (12-78); BILIRUBIN,TOTAL 1.4 MG/DL (0.2-1.0); BLOOD UREA NITROGEN 13 MG/DL (7-18); CARBON DIOXIDE LEVEL 28 MEQ/L (21-32); CHLORIDE LEVEL 101 MEQ/L (98-107); CHOLESTEROL LEVEL 128 MG/DL (<200); CHOLESTEROL RISK RATIO 2.723 (<5); CREATININE FOR GFR 1.14 MG/DL (0.70-1.30); FREE T4 1.07 NG/DL (0.76-1.46); GLOMERULAR FILTRATION RATE > 60.0 (>56); GLUCOSE, FASTING 217 MG/DL (70-100); HDL CHOLESTEROL 47 MG/DL (>40); LDL CHOLESTEROL 42 MG/DL (<100); NON-HDL-C 81 MG/DL; POTASSIUM SERUM 4.3 MEQ/L (3.5-5.1); PTH INTACT 33.9 PG/ML (18.5-88.0); SODIUM LEVEL 136 MEQ/L (136-145); TOTAL 25(OH) VITAMIN D 21.8 NG/ML (30.0-100.0); TOTAL PROTEIN 7.3 GM/DL (6.4-8.2); TRIGLYCERIDES LEVEL 195 MG/DL (<150)
[2019-05-13 14:38] LABS: HEMOGLOBIN A1c 7.7 %
== END ==
LOC: M LABDRAW1 13:01
PROVIDERS: ATTEND Family Medicine
DX: E55.9 Vitamin D deficiency, unspecified (principal); E11.9 Type 2 diabetes mellitus without complications; D61.818 Other pancytopenia

== ENCOUNTER → 2019-10-21 | Outpatient (REF) | payer BC ==
[~2019-10-21] MED LIST changes: -ASPI81TA85 PO; +ASPI81TA86 PO; -IRBE300T10 PO; +IRBE300T7 PO; -LIDO1SOL8 PO; +LIDO2SOL17 PO
[2019-10-21 11:30] LABS: BASO % 0.4 % (0.0-1.0); EOS # 0.1 10^3/uL (0.0-0.5); EOS % 2.5 % (0.0-3.0); HEMATOCRIT 39.3 % (42.0-52.0); HEMOGLOBIN 13.2 g/dl (13.5-17.5); LYMPH # 0.9 10^3/uL (1.5-5.0); LYMPH % 19.1 % (24.0-44.0); MEAN CORPUSCULAR HEMOGLOBIN 31.6 pg (27.0-33.0); MEAN CORPUSCULAR HGB CONC 33.6 g/dl (32.0-36.5); MONO # 0.4 10^3/uL (0.0-0.8); MONO % 8.3 % (0.0-5.0); NEUTROPHILS # 3.3 10^3/uL (1.5-8.5); NEUTROPHILS % 69.5 % (36.0-66.0); PLATELET COUNT, AUTOMATED 130 10^3/uL (150-450); RED BLOOD COUNT 4.18 10^6/uL (4.30-6.10); WHITE BLOOD COUNT 4.7 10^3/uL (4.0-10.0)
[2019-10-21 11:46] LABS: ALBUMIN 4.1 GM/DL (3.2-5.2); ALT/SGPT 15 U/L (12-78); BILIRUBIN,TOTAL 1.1 MG/DL (0.2-1.0); BLOOD UREA NITROGEN 14 MG/DL (7-18); CALCIUM LEVEL 8.8 MG/DL (8.5-10.1); CARBON DIOXIDE LEVEL 28 MEQ/L (21-32); CHLORIDE LEVEL 106 MEQ/L (98-107); CREATININE FOR GFR 0.98 MG/DL (0.70-1.30); FREE T4 0.87 NG/DL (0.76-1.46); GLOMERULAR FILTRATION RATE > 60.0 (>56); GLUCOSE, FASTING 130 MG/DL (70-100); POTASSIUM SERUM 4.4 MEQ/L (3.5-5.1); SODIUM LEVEL 141 MEQ/L (136-145); TOTAL PROTEIN 7.1 GM/DL (6.4-8.2)
[2019-10-21 13:10] LABS: THYROID PEROXIDASE ANTIBODY < 28.0 U/ML (<60.0)
[2019-10-21 16:15] LABS: HEMOGLOBIN A1c 5.5 %
== END ==
LOC: M PLALAB 08:21
PROVIDERS: ATTEND Family Medicine
DX: D61.818 Other pancytopenia (principal); E11.9 Type 2 diabetes mellitus without complications; E78.2 Mixed hyperlipidemia

== ENCOUNTER → 2020-04-09 | Outpatient (REF) | payer BC ==
[2020-04-09 10:23] LABS: BASO % 0.4 % (0.0-1.0); EOS # 0.1 10^3/uL (0.0-0.5); EOS % 2.1 % (0.0-3.0); HEMATOCRIT 41.3 % (42.0-52.0); HEMOGLOBIN 13.8 g/dl (13.5-17.5); LYMPH # 0.9 10^3/uL (1.5-5.0); LYMPH % 19.3 % (24.0-44.0); MEAN CORPUSCULAR HEMOGLOBIN 30.9 pg (27.0-33.0); MEAN CORPUSCULAR HGB CONC 33.4 g/dl (32.0-36.5); MEAN CORPUSCULAR VOLUME 92.6 fl (80.0-96.0); MONO # 0.4 10^3/uL (0.0-0.8); NEUTROPHILS # 3.4 10^3/uL (1.5-8.5); NEUTROPHILS % 68.8 % (36.0-66.0); PLATELET COUNT, AUTOMATED 136 10^3/uL (150-450); RED BLOOD COUNT 4.46 10^6/uL (4.30-6.10); WHITE BLOOD COUNT 4.9 10^3/uL (4.0-10.0)
[2020-04-09 10:53] LABS: HEMOGLOBIN A1c 5.5 %
[2020-04-09 11:00] LABS: ALBUMIN 4.3 GM/DL (3.2-5.2); ALT/SGPT 15 U/L (12-78); BILIRUBIN,TOTAL 1.4 MG/DL (0.2-1.0); BLOOD UREA NITROGEN 14 MG/DL (7-18); CALCIUM LEVEL 9.1 MG/DL (8.5-10.1); CARBON DIOXIDE LEVEL 30 MEQ/L (21-32); CHLORIDE LEVEL 104 MEQ/L (98-107); CREATININE FOR GFR 1.06 MG/DL (0.70-1.30); GLOMERULAR FILTRATION RATE > 60.0 (>56); GLUCOSE, FASTING 166 MG/DL (70-100); POTASSIUM SERUM 4.1 MEQ/L (3.5-5.1); SODIUM LEVEL 140 MEQ/L (136-145); TOTAL PROTEIN 7.5 GM/DL (6.4-8.2)
[2020-04-09 12:05] LABS: PTH INTACT 34.7 PG/ML (18.5-88.0); TOTAL 25(OH) VITAMIN D 28.2 NG/ML (30.0-100.0)
== END ==
LOC: M PLALAB 09:01
PROVIDERS: ATTEND Family Medicine
DX: D61.818 Other pancytopenia (principal); E55.9 Vitamin D deficiency, unspecified; E11.9 Type 2 diabetes mellitus without complications; Z12.5 Encounter for screening for malignant neoplasm of prostate
CPT/HCPCS: 36415; 80053; 82306; 83036; 83525; 83970; 85025; G0103

== ENCOUNTER → 2020-09-21 | Outpatient (REF) | payer BC ==
[2020-09-21 10:56] LABS: APPEARANCE, URINE CLEAR (CLEAR); BACTERIA, URINE AUTO NEGATIVE (NEGATIVE); BILIRUBIN, URINE AUTO NEGATIVE (NEGATIVE); BLOOD, URINE BLOOD NEGATIVE (NEGATIVE); COLOR, URINE YELLOW (YELLOW); GLUCOSE, URINE (UA) AUTO NEGATIVE (NEGATIVE); KETONE, URINE AUTO NEGATIVE (NEGATIVE); LEUKOCYTE ESTERASE, URINE AUTO NEGATIVE (NEGATIVE); NITRITE, URINE AUTO NEGATIVE (NEGATIVE); PROTEIN, URINE AUTO NEGATIVE (NEGATIVE); RBC, URINE AUTO 1 /HPF (0-3); SPECIFIC GRAVITY URINE AUTO 1.015 (1.002-1.035); SQUAMOUS EPITHELIAL CELL UR AU 0 /HPF (0-6); UROBILINOGEN, URINE AUTO 0.2 mg/dL (0.0-2.0); WBC, URINE AUTO 0 /HPF (0-3)
[2020-09-21 11:01] LABS: BASO % 0.7 % (0.0-1.0); EOS # 0.1 10^3/uL (0.0-0.5); HEMATOCRIT 40.8 % (42.0-52.0); HEMOGLOBIN 13.9 g/dl (13.5-17.5); LYMPH # 0.9 10^3/uL (1.5-5.0); LYMPH % 20.2 % (24.0-44.0); MEAN CORPUSCULAR HEMOGLOBIN 31.7 pg (27.0-33.0); MEAN CORPUSCULAR HGB CONC 34.1 g/dl (32.0-36.5); MEAN CORPUSCULAR VOLUME 92.9 fl (80.0-96.0); MONO # 0.5 10^3/uL (0.0-0.8); MONO % 10.8 % (2.0-8.0); NEUTROPHILS # 3.1 10^3/uL (1.5-8.5); NEUTROPHILS % 66.1 % (36.0-66.0); PLATELET COUNT, AUTOMATED 124 10^3/uL (150-450); RED BLOOD COUNT 4.39 10^6/uL (4.30-6.10); WHITE BLOOD COUNT 4.6 10^3/uL (4.0-10.0)
[2020-09-21 11:40] LABS: ALT/SGPT 17 U/L (12-78); BILIRUBIN,TOTAL 1.1 MG/DL (0.2-1.0); BLOOD UREA NITROGEN 14 MG/DL (7-18); CALCIUM LEVEL 9.3 MG/DL (8.5-10.1); CARBON DIOXIDE LEVEL 29 MEQ/L (21-32); CHLORIDE LEVEL 104 MEQ/L (98-107); CHOLESTEROL LEVEL 117 MG/DL (<200); CREATININE FOR GFR 1.01 MG/DL (0.70-1.30); GLOMERULAR FILTRATION RATE > 60.0 (>56); GLUCOSE, FASTING 150 MG/DL (70-100); POTASSIUM SERUM 4.3 MEQ/L (3.5-5.1); SODIUM LEVEL 138 MEQ/L (136-145); TRIGLYCERIDES LEVEL 176 MG/DL (<150)
[2020-09-21 11:41] LABS: ALBUMIN 4.1 GM/DL (3.2-5.2); CHOLESTEROL RISK RATIO 2.543 (<5); HDL CHOLESTEROL 46 MG/DL (>40); LDL CHOLESTEROL 36 MG/DL (<100); NON-HDL-C 71 MG/DL
[2020-09-21 11:49] LABS: MALB URINE SIEMENS 6.8 MG/L; MAU/CREAT RATIO 4.9 MCG/MG (0.0-30.0)
== END ==
LOC: M PLALAB 08:11
PROVIDERS: ATTEND Family Medicine
DX: I10 Essential (primary) hypertension (principal); E78.2 Mixed hyperlipidemia; E11.9 Type 2 diabetes mellitus without complications

== ENCOUNTER → 2021-03-01 | Outpatient (CLI) | payer BC ==
[2021-03-01 11:08] LABS: INR 0.87; PROTHROMBIN TIME 12.3 SECONDS (12.7-14.5)
[2021-03-01 11:09] LABS: PARTIAL THROMBOPLASTIN TIME 24.5 SECONDS (25.9-37.0)
[2021-03-01 11:43] LABS: ALBUMIN 4.1 GM/DL (3.2-5.2); ALT/SGPT 16 U/L (12-78); BILIRUBIN,TOTAL 0.9 MG/DL (0.2-1.0); BLOOD UREA NITROGEN 15 MG/DL (7-18); CALCIUM LEVEL 9.5 MG/DL (8.5-10.1); CARBON DIOXIDE LEVEL 29 MEQ/L (21-32); CHLORIDE LEVEL 104 MEQ/L (98-107); CREATININE FOR GFR 0.99 MG/DL (0.70-1.30); GLOMERULAR FILTRATION RATE > 60.0 (>56); GLUCOSE, FASTING 178 MG/DL (70-100); NT-PRO BNP 21 PG/ML (<125); POTASSIUM SERUM 4.2 MEQ/L (3.5-5.1); SODIUM LEVEL 139 MEQ/L (136-145); TOTAL PROTEIN 7.1 GM/DL (6.4-8.2); VITAMIN B12 LEVEL 664 PG/ML (247-911)
== END ==
LOC: M PLALAB 08:00
PROVIDERS: ATTEND Family Medicine
DX: K76.0 Fatty (change of) liver, not elsewhere classified (principal); I10 Essential (primary) hypertension; E11.9 Type 2 diabetes mellitus without complications; M47.816 Spondylosis without myelopathy or radiculopathy, lumbar region; Z12.5 Encounter for screening for malignant neoplasm of prostate
CPT/HCPCS: 36415; 80053; 82105; 82172; 82607; 83010; 83036; 83525; 83880; 83883; 85610; 85730; 86677; G0103

== ENCOUNTER → 2021-07-29 | Outpatient (CLI) | payer BC ==
[2021-07-29 13:40] LABS: BASO % 0.4 % (0.0-1.0); EOS # 0.1 10^3/uL (0.0-0.5); EOS % 1.3 % (0.0-3.0); HEMATOCRIT 41.9 % (42.0-52.0); HEMOGLOBIN 14.5 g/dl (13.5-17.5); MEAN CORPUSCULAR HEMOGLOBIN 31.9 pg (27.0-33.0); MEAN CORPUSCULAR HGB CONC 34.6 g/dl (32.0-36.5); MEAN CORPUSCULAR VOLUME 92.1 fl (80.0-96.0); MONO # 0.5 10^3/uL (0.0-0.8); MONO % 8.9 % (2.0-8.0); NEUTROPHILS # 3.8 10^3/uL (1.5-8.5); PLATELET COUNT, AUTOMATED 158 10^3/uL (150-450); RED BLOOD COUNT 4.55 10^6/uL (4.30-6.10); WHITE BLOOD COUNT 5.4 10^3/uL (4.0-10.0)
[2021-07-29 13:53] LABS: ALBUMIN 4.5 GM/DL (3.2-5.2); ALT/SGPT 21 U/L (12-78); BILIRUBIN,TOTAL 1.2 MG/DL (0.2-1.0); BLOOD UREA NITROGEN 13 MG/DL (7-18); CALCIUM LEVEL 10.2 MG/DL (8.5-10.1); CARBON DIOXIDE LEVEL 29 MEQ/L (21-32); CHLORIDE LEVEL 105 MEQ/L (98-107); CHOLESTEROL LEVEL 117 MG/DL (<200); CHOLESTEROL RISK RATIO 2.853 (<5); FERRITIN 48 NG/ML (26-388); FREE T4 0.92 NG/DL (0.76-1.46); GLOMERULAR FILTRATION RATE > 60.0 (>56); GLUCOSE, FASTING 123 MG/DL (70-100); HDL CHOLESTEROL 41 MG/DL (>40); LDL CHOLESTEROL 39 MG/DL (<100); NON-HDL-C 76 MG/DL; POTASSIUM SERUM 5.5 MEQ/L (3.5-5.1); SODIUM LEVEL 140 MEQ/L (136-145); TOTAL PROTEIN 7.4 GM/DL (6.4-8.2); TRIGLYCERIDES LEVEL 185 MG/DL (<150)
[2021-07-29 13:55] LABS: TOTAL 25(OH) VITAMIN D 27.3 NG/ML (30.0-100.0)
[2021-07-29 14:07] LABS: HEMOGLOBIN A1c 5.2 %
== END ==
LOC: M PLALAB 10:37
PROVIDERS: ATTEND Family Medicine
DX: E11.9 Type 2 diabetes mellitus without complications (principal); D61.818 Other pancytopenia; E78.2 Mixed hyperlipidemia

== ENCOUNTER → 2021-08-12 | Outpatient (CLI) | payer BC ==
[2021-08-12 10:41] LABS: ALBUMIN 3.9 GM/DL (3.2-5.2); BLOOD UREA NITROGEN 13 MG/DL (7-18); CALCIUM LEVEL 9.7 MG/DL (8.5-10.1); CARBON DIOXIDE LEVEL 28 MEQ/L (21-32); CHLORIDE LEVEL 106 MEQ/L (98-107); CREATININE FOR GFR 0.94 MG/DL (0.70-1.30); GLOMERULAR FILTRATION RATE > 60.0 (>56); GLUCOSE, FASTING 144 MG/DL (70-100); PHOSPHORUS LEVEL 2.8 MG/DL (2.5-4.9); POTASSIUM SERUM 5.7 MEQ/L (3.5-5.1); SODIUM LEVEL 139 MEQ/L (136-145); TOTAL PROTEIN 6.7 GM/DL (6.4-8.2)
[2021-08-12 11:28] LABS: PTH INTACT 30.4 PG/ML (18.5-88.0)
[2021-08-13 08:26] LABS: ALBUMIN 4.27 GM/DL (3.29-5.55); ALBUMIN % 63.7 % (55.8-66.1); ALPHA-1-GLOBULIN % 3.4 % (2.9-4.9); ALPHA-2-GLOBULINS % 8.2 % (7.1-11.8); BETA-1-GLOBULINS % 6.5 % (4.7-7.2); BETA-2-GLOBULINS % 4.8 % (3.2-6.5); GAMMA GLOBULIN % 13.4 % (11.1-18.8)
[2021-08-13 08:27] LABS: ALPHA-1-GLOBULINS 0.23 GM/DL (0.17-0.41); ALPHA-2-GLOBULINS 0.55 GM/DL (0.42-0.99); BETA-1-GLOBULINS 0.44 GM/DL (0.28-0.60); BETA-2-GLOBULINS 0.32 GM/DL (0.19-0.55)
== END ==
LOC: M PLALAB 08:41
PROVIDERS: ATTEND Family Medicine
DX: E55.9 Vitamin D deficiency, unspecified (principal)

== ENCOUNTER → 2021-12-30 | Outpatient (CLI) | payer BC ==
[2021-12-30 12:54] LABS: BASO % 0.2 % (0.0-1.0); EOS # 0.3 10^3/uL (0.0-0.5); EOS % 6.1 % (0.0-3.0); HEMATOCRIT 39.7 % (42.0-52.0); HEMOGLOBIN 13.1 g/dl (13.5-17.5); LYMPH % 21.1 % (24.0-44.0); MEAN CORPUSCULAR HEMOGLOBIN 31.1 pg (27.0-33.0); MEAN CORPUSCULAR VOLUME 94.3 fl (80.0-96.0); MONO # 0.4 10^3/uL (0.0-0.8); MONO % 8.9 % (2.0-8.0); NEUTROPHILS # 3.1 10^3/uL (1.5-8.5); NEUTROPHILS % 63.1 % (36.0-66.0); PLATELET COUNT, AUTOMATED 152 10^3/uL (150-450); RED BLOOD COUNT 4.21 10^6/uL (4.30-6.10); WHITE BLOOD COUNT 4.9 10^3/uL (4.0-10.0)
[2021-12-30 13:35] LABS: ALBUMIN 3.9 GM/DL (3.2-5.2); ALT/SGPT 10 U/L (12-78); BILIRUBIN,TOTAL 0.8 MG/DL (0.2-1.0); BLOOD UREA NITROGEN 10 MG/DL (7-18); CALCIUM LEVEL 9.4 MG/DL (8.5-10.1); CARBON DIOXIDE LEVEL 28 MEQ/L (21-32); CHLORIDE LEVEL 106 MEQ/L (98-107); CHOLESTEROL LEVEL 93 MG/DL (<200); CHOLESTEROL RISK RATIO 2.384 (<5); CREATININE FOR GFR 1.02 MG/DL (0.70-1.30); GLOMERULAR FILTRATION RATE > 60.0 (>56); GLUCOSE, FASTING 141 MG/DL (70-100); HDL CHOLESTEROL 39 MG/DL (>40); LDL CHOLESTEROL 26 MG/DL (<100); NON-HDL-C 54 MG/DL; POTASSIUM SERUM 5.2 MEQ/L (3.5-5.1); SODIUM LEVEL 137 MEQ/L (136-145); TRIGLYCERIDES LEVEL 138 MG/DL (<150)
[2021-12-30 13:48] LABS: MALB URINE SIEMENS 9.4 MG/L; MAU/CREAT RATIO 4.8 MCG/MG (0.0-30.0)
[2021-12-30 14:16] LABS: PTH INTACT 23.9 PG/ML (18.5-88.0)
[2021-12-30 14:17] LABS: HEMOGLOBIN A1c 5.4 %
[2021-12-31 18:08] LABS: APOLIPOPROTEIN B/A-1 RATIO 0.4 ratio (0.0-0.7)
== END ==
LOC: M PLALAB 08:05
PROVIDERS: ATTEND Family Medicine
DX: E55.9 Vitamin D deficiency, unspecified (principal); E11.9 Type 2 diabetes mellitus without complications; D61.818 Other pancytopenia

== ENCOUNTER → 2022-06-03 | Outpatient (CLI) | payer BC ==
[~2022-06-03] MED LIST changes: +LIDO15SO4 PO; -LIDO2SOL17 PO
[2022-06-03 13:11] LABS: BASO % 0.4 % (0.0-1.0); EOS # 0.1 10^3/uL (0.0-0.5); EOS % 2.6 % (0.0-3.0); HEMATOCRIT 42.1 % (42.0-52.0); HEMOGLOBIN 14.2 g/dl (13.5-17.5); LYMPH % 19.5 % (24.0-44.0); MEAN CORPUSCULAR HEMOGLOBIN 31.4 pg (27.0-33.0); MEAN CORPUSCULAR HGB CONC 33.7 g/dl (32.0-36.5); MEAN CORPUSCULAR VOLUME 93.1 fl (80.0-96.0); MONO # 0.6 10^3/uL (0.0-0.8); MONO % 10.8 % (2.0-8.0); NEUTROPHILS # 3.4 10^3/uL (1.5-8.5); NEUTROPHILS % 66.5 % (36.0-66.0); PLATELET COUNT, AUTOMATED 161 10^3/uL (150-450); RED BLOOD COUNT 4.52 10^6/uL (4.30-6.10); WHITE BLOOD COUNT 5.1 10^3/uL (4.0-10.0)
[2022-06-03 13:38] LABS: CREATININE, URINE 173.7 MG/DL; MAU/CREAT RATIO 2.3 MCG/MG (0.0-30.0)
[2022-06-03 13:43] LABS: ALBUMIN 4.3 G/DL (3.2-5.2); ALKALINE PHOSPHATASE 66 U/L (46-116); ALT/SGPT 12 U/L (7.0-40); AST/SGOT 17 U/L (<34); BILIRUBIN,TOTAL 1.8 MG/DL (0.3-1.2); BLOOD UREA NITROGEN 16 MG/DL (9-23); CALCIUM LEVEL 10.3 MG/DL (8.5-10.1); CARBON DIOXIDE LEVEL 28 MMOL/L (20-31); CHLORIDE LEVEL 105 MMOL/L (98-107); CREATININE FOR GFR 0.94 MG/DL (0.70-1.30); FERRITIN 39.1 NG/ML (10.5-307.3); GLOMERULAR FILTRATION RATE > 60.0 (>56); GLUCOSE, FASTING 136 MG/DL (60-100); MAGNESIUM LEVEL 1.6 MG/DL (1.8-2.4); POTASSIUM SERUM 5.5 MMOL/L (3.5-5.1); SODIUM LEVEL 138 MMOL/L (136-145); TOTAL PROTEIN 7.2 G/DL (5.7-8.2); VITAMIN B12 LEVEL 404 PG/ML (211-911)
== END ==
LOC: M PLALAB 08:19
PROVIDERS: ATTEND Family Medicine
DX: Z12.5 Encounter for screening for malignant neoplasm of prostate (principal); I10 Essential (primary) hypertension; E11.9 Type 2 diabetes mellitus without complications; D61.818 Other pancytopenia
CPT/HCPCS: 36415; 80053; 82043; 82607; 82728; 83036; 83525; 83735; 85025; 85046; G0103

== ENCOUNTER → 2022-12-23 | Outpatient (CLI) | payer BC ==
[~2022-12-23] MED LIST changes: +LIDO15SO PO; -LIDO15SO4 PO
[2022-12-23 12:40] LABS: BASO % 0.6 % (0.0-1.0); EOS # 0.1 10^3/uL (0.0-0.5); EOS % 1.9 % (0.0-3.0); HEMOGLOBIN 14.2 g/dl (13.5-17.5); LYMPH # 1.3 10^3/uL (1.5-5.0); LYMPH % 27.5 % (24.0-44.0); MEAN CORPUSCULAR HEMOGLOBIN 31.3 pg (27.0-33.0); MEAN CORPUSCULAR HGB CONC 33.8 g/dl (32.0-36.5); MEAN CORPUSCULAR VOLUME 92.5 fl (80.0-96.0); MONO # 0.6 10^3/uL (0.0-0.8); MONO % 12.7 % (2.0-8.0); NEUTROPHILS # 2.7 10^3/uL (1.5-8.5); NEUTROPHILS % 57.1 % (36.0-66.0); PLATELET COUNT, AUTOMATED 158 10^3/uL (150-450); RED BLOOD COUNT 4.54 10^6/uL (4.30-6.10); WHITE BLOOD COUNT 4.7 10^3/uL (4.0-10.0)
[2022-12-23 12:44] LABS: ALBUMIN 4.3 G/DL (3.2-5.2); BLOOD UREA NITROGEN 17 MG/DL (9-23); CALCIUM LEVEL 9.6 MG/DL (8.5-10.1); CARBON DIOXIDE LEVEL 30 MMOL/L (20-31); CHLORIDE LEVEL 104 MMOL/L (98-107); CREATININE FOR GFR 0.99 MG/DL (0.70-1.30); FERRITIN 23.5 NG/ML (10.5-307.3); GLOMERULAR FILTRATION RATE > 60.0 (>56); GLUCOSE, FASTING 139 MG/DL (60-100); PHOSPHORUS LEVEL 3.5 MG/DL (2.5-4.9); SODIUM LEVEL 140 MMOL/L (136-145)
[2022-12-23 12:45] LABS: HEMOGLOBIN A1c 6.1 % (4.0-6.0); TOTAL 25(OH) VITAMIN D 28.7 NG/ML (20.0-100.0)
[2022-12-24 10:01] LABS: PTH INTACT 26.2 PG/ML (18.5-88.0)
== END ==
LOC: M PLALAB 08:35
PROVIDERS: ATTEND Family Medicine
DX: D61.818 Other pancytopenia (principal); E11.9 Type 2 diabetes mellitus without complications; E55.9 Vitamin D deficiency, unspecified

== ENCOUNTER → 2023-04-15 | Outpatient (CLI) | payer BC | LOC: M RAD 15:39 | PROVIDERS: ATTEND Surgery | DX: M27.2 Inflammatory conditions of jaws (principal) ==

== ENCOUNTER → 2023-06-30 | Outpatient (CLI) | payer BC ==
[~2023-06-30] MED LIST changes: +IRBE300T25 PO; -IRBE300T7 PO; -LIDO15SO PO; +LIDO15SO8 PO
[2023-06-30 10:47] LABS: BASO % 0.1 % (0.0-1.0); EOS % 0.2 % (0.0-3.0); HEMATOCRIT 37.7 % (42.0-52.0); HEMOGLOBIN 12.8 g/dl (13.5-17.5); LYMPH # 1.2 10^3/uL (1.5-5.0); LYMPH % 12.2 % (24.0-44.0); MEAN CORPUSCULAR HEMOGLOBIN 31.1 pg (27.0-33.0); MEAN CORPUSCULAR VOLUME 91.5 fl (80.0-96.0); MONO # 0.6 10^3/uL (0.0-0.8); MONO % 5.7 % (2.0-8.0); NEUTROPHILS # 8.2 10^3/uL (1.5-8.5); NEUTROPHILS % 81.2 % (36.0-66.0); PLATELET COUNT, AUTOMATED 199 10^3/uL (150-450); RED BLOOD COUNT 4.12 10^6/uL (4.30-6.10); WHITE BLOOD COUNT 10.1 10^3/uL (4.0-10.0)
[2023-06-30 11:13] LABS: HEMOGLOBIN A1c 6.9 % (4.0-6.0)
[2023-06-30 11:16] LABS: LDL CHOLESTEROL 52.4 MG/DL (<100); PSA SCREENING 0.51 NG/ML (< 4.00)
[2023-06-30 11:20] LABS: FERRITIN 67.6 NG/ML (10.5-307.3)
[2023-07-04 03:11] LABS: TISSUE TRANSGLUTAMINASE IgA <2 U/mL (0-3)
== END ==
LOC: M PLALAB 08:33
PROVIDERS: ATTEND Family Medicine
DX: D50.9 Iron deficiency anemia, unspecified (principal); E11.9 Type 2 diabetes mellitus without complications; Z12.5 Encounter for screening for malignant neoplasm of prostate; E78.2 Mixed hyperlipidemia
CPT/HCPCS: 36415; 80061; 82172; 82728; 83010; 83036; 83883; 85025; 86364; G0103

== ENCOUNTER → 2023-08-29 | Outpatient (CLI) | payer BC ==
[2023-08-29 18:07] LABS: BASO % 0.3 % (0.0-1.0); EOS # 0.1 10^3/uL (0.0-0.5); EOS % 0.6 % (0.0-3.0); HEMATOCRIT 37.1 % (42.0-52.0); HEMOGLOBIN 13.2 g/dl (13.5-17.5); LYMPH # 1.6 10^3/uL (1.5-5.0); LYMPH % 11.8 % (24.0-44.0); MEAN CORPUSCULAR HEMOGLOBIN 31.7 pg (27.0-33.0); MEAN CORPUSCULAR HGB CONC 35.6 g/dl (32.0-36.5); MEAN CORPUSCULAR VOLUME 89.2 fl (80.0-96.0); MONO # 1.3 10^3/uL (0.0-0.8); MONO % 9.6 % (2.0-8.0); NEUTROPHILS # 10.3 10^3/uL (1.5-8.5); NEUTROPHILS % 77.3 % (36.0-66.0); PLATELET COUNT, AUTOMATED 207 10^3/uL (150-450); RED BLOOD COUNT 4.16 10^6/uL (4.30-6.10); WHITE BLOOD COUNT 13.3 10^3/uL (4.0-10.0)
[2023-08-29 18:42] LABS: BILIRUBIN,TOTAL 2.4 MG/DL (0.3-1.2); CREATININE FOR GFR 1.5 MG/DL (0.70-1.30); GLOMERULAR FILTRATION RATE 50.8 (>49); POTASSIUM SERUM 5.8 MMOL/L (3.5-5.1); PSA SCREENING 9.03 NG/ML (< 4.00); TOTAL PROTEIN 7.1 G/DL (5.7-8.2)
== END ==
LOC: M LAB 17:44
PROVIDERS: ATTEND Family Medicine
DX: I10 Essential (primary) hypertension (principal); N39.0 Urinary tract infection, site not specified
CPT/HCPCS: 36415; 80053; 83605; 85025; G0103

== ENCOUNTER → 2023-08-29 | Outpatient (REF) | payer BC ==
[2023-08-30 11:43] LABS: APPEARANCE, URINE CLOUDY (CLEAR); BACTERIA, URINE AUTO NEGATIVE (NEGATIVE); BILIRUBIN, URINE AUTO 1+ (NEGATIVE); BLOOD, URINE BLOOD 3+ (NEGATIVE); CALCIUM OXALATE CRYSTALS LARGE; COLOR, URINE AMBER (YELLOW); GLUCOSE, URINE (UA) AUTO NEGATIVE (NEGATIVE); KETONE, URINE AUTO NEGATIVE (NEGATIVE); LEUKOCYTE ESTERASE, URINE AUTO 2+ (NEGATIVE); MUCUS, URINE SMALL (NEGATIVE); NITRITE, URINE AUTO NEGATIVE (NEGATIVE); PROTEIN, URINE AUTO 3+ mg/dL (NEGATIVE); RBC, URINE AUTO TNTC /HPF (0-3); SPECIFIC GRAVITY URINE AUTO 1.029 (1.002-1.035); SQUAMOUS EPITHELIAL CELL UR AU 2 /HPF (0-6); TRANSITIONAL EPITHELIAL AUTO 2 /HPF; WBC, URINE AUTO TNTC /HPF (0-3)
== END ==
LOC: M SFHCPLAZ 17:30
PROVIDERS: ATTEND Family Medicine
DX: N39.0 Urinary tract infection, site not specified (principal); I10 Essential (primary) hypertension

== ENCOUNTER → 2023-09-05 | Outpatient (CLI) | payer BC ==
[2023-09-05 15:38] LABS: BASO % 0.5 % (0.0-1.0); EOS # 0.1 10^3/uL (0.0-0.5); EOS % 1.3 % (0.0-3.0); HEMATOCRIT 35.1 % (42.0-52.0); HEMOGLOBIN 12.4 g/dl (13.5-17.5); LYMPH # 1.4 10^3/uL (1.5-5.0); LYMPH % 25.5 % (24.0-44.0); MEAN CORPUSCULAR HEMOGLOBIN 31.2 pg (27.0-33.0); MEAN CORPUSCULAR HGB CONC 35.3 g/dl (32.0-36.5); MEAN CORPUSCULAR VOLUME 88.2 fl (80.0-96.0); MONO # 0.6 10^3/uL (0.0-0.8); MONO % 11.7 % (2.0-8.0); NEUTROPHILS # 3.3 10^3/uL (1.5-8.5); NEUTROPHILS % 60.6 % (36.0-66.0); PLATELET COUNT, AUTOMATED 211 10^3/uL (150-450); RED BLOOD COUNT 3.98 10^6/uL (4.30-6.10); WHITE BLOOD COUNT 5.5 10^3/uL (4.0-10.0)
[2023-09-05 15:47] LABS: APPEARANCE, URINE CLEAR (CLEAR); BACTERIA, URINE AUTO NEGATIVE (NEGATIVE); BILIRUBIN, URINE AUTO NEGATIVE (NEGATIVE); BLOOD, URINE BLOOD NEGATIVE (NEGATIVE); COLOR, URINE COLORLESS (YELLOW); GLUCOSE, URINE (UA) AUTO NEGATIVE (NEGATIVE); KETONE, URINE AUTO NEGATIVE (NEGATIVE); LEUKOCYTE ESTERASE, URINE AUTO NEGATIVE (NEGATIVE); NITRITE, URINE AUTO NEGATIVE (NEGATIVE); PROTEIN, URINE AUTO NEGATIVE (NEGATIVE); RBC, URINE AUTO 0 /HPF (0-3); SPECIFIC GRAVITY URINE AUTO 1.002 (1.002-1.035); SQUAMOUS EPITHELIAL CELL UR AU 0 /HPF (0-6); UROBILINOGEN, URINE AUTO 0.2 mg/dL (0.0-2.0); WBC, URINE AUTO 0 /HPF (0-3)
[2023-09-05 16:04] LABS: ALBUMIN 3.8 G/DL (3.2-5.2); ALKALINE PHOSPHATASE 83 U/L (46-116); ALT/SGPT 21 U/L (7.0-40); AST/SGOT 22 U/L (<34); BILIRUBIN,TOTAL 1.1 MG/DL (0.3-1.2); BLOOD UREA NITROGEN 10 MG/DL (9-23); CALCIUM LEVEL 9.8 MG/DL (8.3-10.6); CARBON DIOXIDE LEVEL 28 MMOL/L (20-31); CHLORIDE LEVEL 109 MMOL/L (98-107); CREATININE FOR GFR 0.98 MG/DL (0.70-1.30); GLOMERULAR FILTRATION RATE > 60.0 (>49); GLUCOSE, FASTING 96 MG/DL (74-106); POTASSIUM SERUM 5.2 MMOL/L (3.5-5.1); SODIUM LEVEL 142 MMOL/L (136-145); TOTAL PROTEIN 6.8 G/DL (5.7-8.2)
== END ==
LOC: M PLALAB 14:04 → M LAB 14:04
PROVIDERS: ATTEND Family Medicine
DX: N39.0 Urinary tract infection, site not specified (principal); I10 Essential (primary) hypertension

== ENCOUNTER → 2024-01-16 | Outpatient (CLI) | payer BC ==
[~2024-01-16] MED LIST changes: -MULT200T7 PO; +MULT200T9 PO
[2024-01-16 10:21] LABS: BASO % 0.6 % (0.0-1.0); EOS # 0.1 10^3/uL (0.0-0.5); EOS % 2.1 % (0.0-3.0); HEMATOCRIT 37.7 % (42.0-52.0); HEMOGLOBIN 12.8 g/dl (13.5-17.5); LYMPH # 1.1 10^3/uL (1.5-5.0); LYMPH % 22.5 % (24.0-44.0); MEAN CORPUSCULAR HEMOGLOBIN 30.5 pg (27.0-33.0); MEAN CORPUSCULAR VOLUME 89.8 fl (80.0-96.0); MONO # 0.5 10^3/uL (0.0-0.8); MONO % 10.6 % (2.0-8.0); NEUTROPHILS # 3.1 10^3/uL (1.5-8.5); PLATELET COUNT, AUTOMATED 146 10^3/uL (150-450); WHITE BLOOD COUNT 4.8 10^3/uL (4.0-10.0)
[2024-01-16 10:58] LABS: HEMOGLOBIN A1c 4.9 % (4.0-6.0)
[2024-01-16 11:36] LABS: ALBUMIN 3.9 G/DL (3.2-5.2); ALKALINE PHOSPHATASE 77 U/L (46-116); ALT/SGPT 9 U/L (7.0-40); AST/SGOT 15 U/L (<34); BILIRUBIN,TOTAL 1.5 MG/DL (0.3-1.2); BLOOD UREA NITROGEN 14 MG/DL (9-23); CALCIUM LEVEL 9.7 MG/DL (8.3-10.6); CARBON DIOXIDE LEVEL 28 MMOL/L (20-31); CHLORIDE LEVEL 106 MMOL/L (98-107); CREATININE FOR GFR 0.96 MG/DL (0.70-1.30); GLOMERULAR FILTRATION RATE > 60.0 (>49); GLUCOSE, FASTING 132 MG/DL (74-106); POTASSIUM SERUM 5.1 MMOL/L (3.5-5.1); PTH INTACT 35.2 PG/ML (18.5-88.0); SODIUM LEVEL 138 MMOL/L (136-145); TOTAL PROTEIN 6.8 G/DL (5.7-8.2)
[2024-01-16 11:38] LABS: FERRITIN 27.3 NG/ML (10.5-307.3); TOTAL 25(OH) VITAMIN D 32.7 NG/ML (20.0-100.0)
== END ==
LOC: M PLALAB 08:05
PROVIDERS: ATTEND Family Medicine
DX: E55.9 Vitamin D deficiency, unspecified (principal); I10 Essential (primary) hypertension

== ENCOUNTER → 2024-02-23 | Outpatient (CLI) | payer BC ==
[~2024-02-23] MED LIST changes: -CYCL5TAB PO; +CYCL5TAB4 PO
== END ==
LOC: M RAD 08:38
PROVIDERS: ATTEND Family Medicine
DX: K76.0 Fatty (change of) liver, not elsewhere classified (principal); I70.90 Unspecified atherosclerosis; Z90.49 Acquired absence of other specified parts of digestive tract

== ENCOUNTER 2024-04-17 09:15 | Day surgery (SDC) | payer BC ==
[~2024-04-17] VITALS: Ht 172.7 cm; Wt 61.7 kg
[~2024-04-17 09:15] MED LIST changes: +SEMA0.257 SQ
[2024-04-17] MEDS ORDERED: CORE10CA PO (09:51)
[2024-04-17] MEDS ORDERED: ESCI5SOL3 PO (09:53)
[2024-04-17] MEDS ORDERED: ROSU5TAB49 PO (09:53)
[2024-04-17] MEDS ORDERED: propofoL 200 MG/20 ML VIAL As Ordered ONE (10:53)
[2024-04-17 11:11] VITALS: TEMP 98.2
[2024-04-17 11:35] VITALS: BP 103/61; O2SAT 98
== END 2024-04-17 11:49 | disposition home or self-care (01) ==
LOC: M OPP 09:15
PROVIDERS: ATTEND Internal Medicine Gastroenterology
DX: Z12.11 Encounter for screening for malignant neoplasm of colon (principal); D12.2 Benign neoplasm of ascending colon; K64.0 First degree hemorrhoids

== ENCOUNTER → 2024-05-15 | Outpatient (CLI) | payer BC ==
[~2024-05-15] MED LIST changes: +CORE10CA PO; +ESCI5SOL3 PO; +ROSU5TAB49 PO
[2024-05-15 12:05] LABS: BASO % 0.4 % (0.0-1.0); EOS # 0.3 10^3/uL (0.0-0.5); EOS % 6.7 % (0.0-3.0); HEMATOCRIT 40.9 % (42.0-52.0); HEMOGLOBIN 13.8 g/dl (13.5-17.5); LYMPH % 19.8 % (24.0-44.0); MEAN CORPUSCULAR HEMOGLOBIN 29.2 pg (27.0-33.0); MEAN CORPUSCULAR HGB CONC 33.7 g/dl (32.0-36.5); MEAN CORPUSCULAR VOLUME 86.5 fl (80.0-96.0); MONO # 0.5 10^3/uL (0.0-0.8); NEUTROPHILS # 3.1 10^3/uL (1.5-8.5); NEUTROPHILS % 62.9 % (36.0-66.0); PLATELET COUNT, AUTOMATED 172 10^3/uL (150-450); RED BLOOD COUNT 4.73 10^6/uL (4.30-6.10); WHITE BLOOD COUNT 4.9 10^3/uL (4.0-10.0)
[2024-05-15 12:38] LABS: ALKALINE PHOSPHATASE 119 U/L (40-129); ALT/SGPT < 9 U/L (7.0-40); AST/SGOT 14 U/L (<34); BILIRUBIN,TOTAL 0.9 MG/DL (0.3-1.2); BLOOD UREA NITROGEN 15 MG/DL (9-23); CALCIUM LEVEL 9.6 MG/DL (8.3-10.6); CARBON DIOXIDE LEVEL 28 MMOL/L (20-31); CHLORIDE LEVEL 102 MMOL/L (98-107); CHOLESTEROL LEVEL 116 MG/DL (<200); CHOLESTEROL RISK RATIO 2.48 (<5); CREATININE FOR GFR 0.96 MG/DL (0.70-1.30); FERRITIN 32.8 NG/ML (10.5-307.3); FREE T4 1.09 NG/DL (0.89-1.76); GLOMERULAR FILTRATION RATE > 60.0 (>49); GLUCOSE, FASTING 146 MG/DL (74-106); HDL CHOLESTEROL 46.6 MG/DL (>40); LDL CHOLESTEROL 44.8 MG/DL (<100); NON-HDL-C 69.4 MG/DL; POTASSIUM SERUM 4.4 MMOL/L (3.5-5.1); PSA SCREENING 0.73 NG/ML (< 4.00); SODIUM LEVEL 140 MMOL/L (136-145); THYROID STIMULATING HORMONE 3.278 uIU/ML (0.55-4.78); TOTAL PROTEIN 7.6 G/DL (5.7-8.2); TRIGLYCERIDES LEVEL 123 MG/DL (<150); VITAMIN B12 LEVEL 766 PG/ML (211-911)
== END ==
LOC: M PLALAB 08:18
PROVIDERS: ATTEND Family Medicine
DX: K76.0 Fatty (change of) liver, not elsewhere classified (principal); I10 Essential (primary) hypertension; D50.9 Iron deficiency anemia, unspecified; Z12.5 Encounter for screening for malignant neoplasm of prostate; E78.2 Mixed hyperlipidemia
CPT/HCPCS: 36415; 80053; 80061; 81350; 82607; 82728; 84238; 84439; 84443; 85025; G0103

== ENCOUNTER → 2024-05-23 | Outpatient (CLI) | payer BC ==
[~2024-05-23] MED LIST changes: +ISOVUE-370 76% 100ML VIAL ONE
== END ==
LOC: M PLAIMG 07:34
PROVIDERS: ATTEND Dentist
DX: M27.2 Inflammatory conditions of jaws (principal)
CPT/HCPCS: 70487; Q9967

== ENCOUNTER → 2024-06-07 | Outpatient (REF) | payer BC ==
[~2024-06-07] MED LIST changes: -ISOVUE-370 76% 100ML VIAL ONE
== END ==
LOC: M LAB REF 11:39
PROVIDERS: ATTEND Dentist
DX: M87.88 Other osteonecrosis, other site (principal)

== ENCOUNTER → 2024-10-15 | Outpatient (CLI) | payer BC ==
[2024-10-15 14:00] LABS: BASO # 0.0 10^3/uL (0.0-0.2); BASO % 0.5 % (0.0-1.0); EOS # 0.2 10^3/uL (0.0-0.5); EOS % 2.8 % (0.0-3.0); LYMPH # 1.4 10^3/uL (1.5-5.0); LYMPH % 21.3 % (24.0-44.0); MONO # 0.6 10^3/uL (0.0-0.8); MONO % 9.2 % (2.0-8.0); NEUTROPHILS # 4.3 10^3/uL (1.5-8.5); NEUTROPHILS % 66.0 % (36.0-66.0); PLATELET COUNT, AUTOMATED 176 10^3/uL (150-450)
[2024-10-15 14:07] LABS: ALT/SGPT < 9 U/L (7.0-40); AST/SGOT 18 U/L (<34); CALCIUM LEVEL 9.6 MG/DL (8.3-10.6); CARBON DIOXIDE LEVEL 30 MMOL/L (20-31); CHLORIDE LEVEL 104 MMOL/L (98-107); CREATININE FOR GFR 0.93 MG/DL (0.70-1.30); FREE T4 1.03 NG/DL (0.89-1.76); GLOMERULAR FILTRATION RATE > 90.0 (>49); POTASSIUM SERUM 5.5 MMOL/L (3.5-5.1); SODIUM LEVEL 139 MMOL/L (136-145); VITAMIN B12 LEVEL 708 PG/ML (211-911)
== END ==
LOC: M PLALAB 09:31
PROVIDERS: ATTEND Family Medicine
DX: I10 Essential (primary) hypertension (principal)

== ENCOUNTER → 2024-11-26 | Outpatient (REF) | payer BC ==
[~2024-11-26] MED LIST changes: -IBUP-1022 PO; +IBUP600T42 PO
== END ==
LOC: M LAB REF 16:12
PROVIDERS: ATTEND Dentist
DX: M87.9 Osteonecrosis, unspecified (principal)